=== PATIENT | female | born 1995 | race Caucasian/White ===

== ENCOUNTER 2018-10-27 14:55 | Emergency (ER) | payer OTHER ==
[~2018-10-27] VITALS: Ht 149.9 cm; Wt 75.5 kg
[2018-10-27 15:42] VITALS: BP 144/93
--- NOTE | 2018-10-27 16:59 | NUR ---
PT AMBULATED TO BED 04.
--- NOTE | 2018-10-27 17:00 | NUR ---
23Y/F BIB FRIEND WITH C/O BL HAND PAIN 03/19, WORSE ON LT HAND WITH DISCOLORATION SINCE YESTERDAY, < 3 CAP REFILL, + SWELLING, + BRUISED ON THE LEFT HAND, NONE NOTED ON THE RIGHT HAND. PT DENIES INJURY. PT AAOX4, VSS AT THIS TIME, BED DOWN, BEDRAIL UP X 1, ER MD AWARE AND NOTIFIED OF PT STATUS. HX; DENIES RX; DENIES
--- NOTE | 2018-10-27 17:10 | NUR ---
Patient being evaluated by physician at bedside.
[2018-10-27 17:26] VITALS: BP 135/89
== END 2018-10-27 17:29 | disposition home or self-care (01) ==
LOC: MED 14:55
DX: M19.042 Primary osteoarthritis, left hand (principal); M19.041 Primary osteoarthritis, right hand
CPT/HCPCS: 99283